=== PATIENT | female | born 1945 | race Caucasian/White ===

== ENCOUNTER 2016-07-01 14:18 | Emergency (ER) | payer MEDICARE ==
[~2016-07-01 14:18] MED LIST: ACET325T51 PO; AMOX875T2 PO; CALC600T12 PO; DOCU250C2 PO; LATA2.5D6 OP; LEVO25TA5 PO; MULT-1018 PO; OMEP20TA24 PO; ONDA8TAB7 PO; SERT50TA9 PO
[2016-07-01 14:38] VITALS: BP 143/83; PULSE 59; RESP 18; O2SAT 97
[2016-07-01 15:15] LABS: BASOPHILS % (AUTO) 0.7 % (0-3); EOSINOPHILS % (AUTO) 1.5 % (0-5); MONOCYTES % (AUTO) 12.9 % (4-12); Mean Corpuscular Hemoglobin 31.2 pg (27.0-35.0); Mean Corpuscular Volume 94.7 fL (81-100); NEUTROPHILS % (AUTO) 56.8 % (40-74); Platelet Count 126 bil/L (150-400)
--- NOTE | 2016-07-01 15:39 | ED.REPORT ---
HPI-General Illness Date of Service Jul 01, 2016 ED Provider: Luke Gloria MD Pt is a 71 y/o female w/ a hx of recurrent ovarian/peritoneal cancer presenting to the ED w/ her c/o generalized weakness and fatigue. Pt reports she has had a bad upper respiratory infection for 47 days with associated nasal congestion, clear nasal discharge, teary eyes, facial pressure. Pt denies fever , cough, nausea, vomiting, abdominal pain, bloody or melena stools, sinus pain. She was placed on a 10 day course of Amoxicillin for a supposed sinus infection by her PCP with no relief. She receives chemotherapy every 3 weeks, her last session was about 1 week ago. Her symptoms seem to be worse during the day. She has been using allergy medication with mild relief only a short period afterwards. Nursing Notes Stated Complaint: EXTREME FATIGUE/FEELING WEAK Chief Complaint: General Complaint Nursing Notes Reviewed: Yes Allergies: Coded Allergies: No Known Allergies (Verified Allergy, Unknown, 07/01/16) Scheduled Amoxicillin (Amoxicillin) 875 Mg Tablet 875 MG PO BID Calcium Carbonate (Calcium) 600 Mg Tablet 600 MG PO BID Latanoprost (Latanoprost) 2.5 Ml Drops 1 GTT OP HS EACH EYE Levothyroxine (Levothyroxine) 25 Mcg Tablet 25 MCG PO DAILY Multivitamin (Multi Vitamin Daily) 1 Each Tablet 1 EACH PO DAILY Omeprazole Magnesium (Prilosec Otc) 20 Mg Tablet.dr 20 MG PO DAILY Sertraline HCl (Sertraline) 50 Mg Tablet 100 MG PO DAILY Scheduled PRN Acetaminophen (Acetaminophen) 325 Mg Tablet 650 MG PO Q4H PRN PRN For Pain Docusate Sodium (Docusate Sodium) 250 Mg Capsule 250 MG PO DAILY PRN PRN For Constipation Ondansetron ODT (Zofran ODT) 8 Mg Tablet 8 MG PO q8hrs prn PRN PRN For Nausea General Time Seen by MD: 15:38 Chief Complaint Multip medical complaints Hx Obtained From: Patient Arrived By: Walk-in Onset Occurred: More than a week ago... 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 Melgar for debulking. She received additional chemotherapy and it was found to have normalized until recent changes in tumor status (Jan 2016) NINO on CPAP Reports: Thyroid disease Past Surgical History tumor debulking at [facility] in 2014. Left Power Port placement. Peritoneal biopsy. Smoking History Never Smoker Social History Other Social History: Good social support, , Local resident Ambulatory Status Independent Review of Systems Full Review of Systems Constitutional: Reports: Fatigue, Weakness - generalized, Denies: Chills, Fever Ears / Nose / Throat: Reports: Nasal congestion Respiratory: Denies: Non-productive cough, Shortness of breath Cardiovascular: Denies: Chest pain GI: Denies: Abdominal pain, Bloody/tarry stool, Melena, Nausea, Vomiting Allergy / Immune: Reports: Rhinorrhea Complete sys rev & neg: except as marked. Physical Exam Vital Signs Vital Signs Date Time Temp Pulse Resp B/P Pulse Ox O2 Delivery O2 Flow Rate FiO2 07/01/16 14:38 37.2 59 18 143/83 97 Room Air Initial VS: Reviewed, Vital signs normal Neck: Supple, Full range of motion Respiratory: Breath sounds normal, Clear to auscultation, No respiratory distress Cardiovascular: Regular rate & rhythm, Heart sounds normal, Intact distal pulses Abdomen / GI: Soft, Non-tender, No guarding, No rebound, No distention Skin: Warm, Dry, No cyanosis Neurologic: Alert, Oriented, Nonfocal Psychiatric: Mood/affect normal, Behavior normal, Normal thought content General/Constitutional: Awake, Alert, No acute distress, Well appearing, Cooperative, Not toxic appearing Head / Eyes: Atraumatic, Normocephalic, PERRL No maxillary or frontal sinus tenderness ENT: Atraumatic, Airway patent, Mucous membranes moist, Pharynx NL, No peritonsillar abscess, No pooling of secretions, No trismus, Tympanic membs NL, Ext aud canal NL Clear nasal congestion bilaterally [place] slightly erythematous No purulent discharge Interpretation & Diagnostics Lab Results Interpretation Result Diagram: 07/01/16 1507 07/01/16 1507 Test 07/01/16 15:07 White Blood Count 2.7th/mm3 (3.8-10.1) Red Blood Count 4.33mil/mm3 (3.90-5.20) Hemoglobin 13.5g/dL (12.0-15.6) Hematocrit 41.0% (35.0-46.0) Mean Corpuscular Volume 94.7fL (81-100) Mean Corpuscular Hemoglobin 31.2pg (27.0-35.0) Mean Corpuscular Hemoglobin Concent 32.9% (32.0-37.0) Red Cell Distribution Width 14.4% (12.3-15.4) Platelet Count 126bil/L (150-400) Neutrophils (%) (Auto) 56.8% (40-74) Lymphocytes (%) (Auto) 27.7% (14-46) Monocytes (%) (Auto) 12.9% (4-12) Eosinophils (%) (Auto) 1.5% (0-5) Basophils (%) (Auto) 0.7% (0-3) Sodium Level 136mEq/L (134-144) Potassium Level 4.5mEq/L (3.5-5.2) Chloride Level 97mEq/L (97-108) Carbon Dioxide Level 27mmol/L (18-29) Blood Urea Nitrogen 13mg/dL (8-27) Creatinine 0.57mg/dL (0.57-1.00) Estimat Glomerular Filtration Rate 149mL/min (>59) Glucose Level 91mg/dL (60-99) Calcium Level 9.3mg/dL (8.5-10.1) Total Bilirubin 0.2mg/dL (0.0-1.2) Aspartate Amino Transf (AST/SGOT) 14U/L (0-50) Alanine Aminotransferase (ALT/SGPT) 15U/L (0-32) Alkaline Phosphatase 63U/L (25-165) Troponin T < 0.010ug/L (0.0-0.011) Pro-B-Type Natriuretic Peptide 52.53pg/mL (0-301) Total Protein 7.2g/dL (6.4-8.4) Albumin 4.3g/dL (3.4-5.0) Hold Barrios Top Tube Received (Received) ECG Interpretation Time: 15:41 Interpreted by: ED physician Normal ECG Interpretation: Normal ECG w/ rate of... (53), Normal rate, Normal sinus rhythm, No acute ischemic changes, Normal QRS, Normal axis, Normal intervals, No change from prior ECGs, Adequate tracing Re-Eval/Medical Decision Med Decision/Clinical Course Pt is a 71 y/o female w/ a hx of recurrent ovarian/peritoneal cancer presenting to the ED w/ her c/o generalized weakness and fatigue. Pt reports she has had a bad upper respiratory infection for 47 days with associated nasal congestion, clear nasal discharge, teary eyes, facial pressure. He has not gotten better or worse despite using many pot and antihistamines. Emergency department the patient is afebrile and in no apparent distress. She is nontoxic in appearance. Termination reveals bilateral clear rhinorrhea and inflammation of the turbinates. She has no purulent nasal discharge or sinus tenderness. EKG is obtained at triage was reviewed by myself as documented above. CXR: Obtained, reviewed and interpreted by myself shows no evidence of acute infiltrates, effusions or pneumothorax. Cardiac and mediastinal silhouette normal. No bony or soft tissue abnormalities. Labs notable as below: CBC: Leukopenia of 2.7, she is not neutropenic CMP: Unremarkable BNP and troponin: negative Overall presentation most consistent with chronic sinusitis. Suspicion for bacterial etiologies higher given that she is on chemotherapy and therefore some degree of immunocompromised. Being said, she is without fever, purulent nasal drainage or lateralizing symptoms. The chronicity of her symptoms and absence of fever, appearance of nasal drainage argue against a bacterial etiology. She reports that she has taken antihistamine spell was not able to recall which type. She do not feel that these helped significantly. She is not sure what chemotherapy agent she is on though does not attribute this, chronologically to the onset of her symptoms. The patient received quite an extensive workup given the initial vague complaints in triage. This workup is reassuring. She has not tried Sudafed and I think that she may benefit from this. She will give this a trial and follow further primary care physician later this week. She will return right away for any fevers or purulent/ worsening symptoms. She may require sinus imaging and this is ordered but discussed with her primary care physician. She will follow this discussion up later in the week. At this time, I feel that she is appropriate for discharge home. Follow-up and return precautions were reviewed in detail she was discharged in stable condition. Time of Eval: 16:14 Re-Evaluation/Progress Note: Pt rechecked. Informed pt of plan for treatment. Pt understands and agrees with plan for treatment. F/U instructions and RTER warnings given. All questions addressed. Counseled Regarding: Diagnosis, Lab results, Need for follow-up, When/why to return to ED Discharge & Departure Primary Impression: Viral sinusitis Additional Impressions: Fatigue Fatigue type: unspecified Qualified Code: R53.83 - Other fatigue Leukopenia Leukopenia type: unspecified Qualified Code: D72.819 - Decreased white blood cell count, unspecified Patient on antineoplastic chemotherapy regimen Disposition: Home Discharge Condition All VS Reviewed: Yes Condition: Stable Patient Instructions: Allergies (ED), Sinusitis (ED) Additional Instructions: Thank you for seeking care at the emergency room. It is difficult for us to make definitive diagnoses in the ED but we believe that you are experiencing a possible seasonal allergic reaction or viral sinusitis. Our primary goal today in the ED was to evaluate you for any life-threatening conditions. Your evaluation was reassuring. Your labs today were normal. Your chest x-ray was negative. I recommend you try Sudafed for a few days. You should follow-up with your primary doctor in the next week. Please discuss this visit with your PCP and oncologist. You should return to the ED immediately if you develop fevers, vomiting, cough, shortness of breath, chest pain, increased lightheadedness, increased weakness or any other concerning signs or symptoms. Thank you for letting us partake in your care today. Referrals: Susie Levy MD (PCP) Jyothi Attestation Portions of this note were transcribed by Pankaj Zimmer. I, Dr. Gloria personally performed the history, physical exam and medical decision-making; I reviewed and confirmed the accuracy of the information in the transcribed note. Signed by Jyothi Curmp, 07/01/16 - 1630 copies to: Susie Levy MD, Beck O MD Jul 01, 2016 15:39 PANKAJ ZIMMER Jul 01, 2016 15:42
--- NOTE | 2016-07-01 16:06 | DRSVH ---
PROCEDURE: X-RAY CHEST ONE VIEW ([id number]) INDICATIONS: SHORT OF BREATH TECHNIQUE: One view of the chest was acquired. COMPARISON: [facility], CR, CHEST 1VW (PORTABLE), 09/23/2014, 11:23. FINDINGS: Surgical changes and devices: Left Port-A-Cath is unchanged. Lungs and pleura: No pleural effusions or pneumothorax. Lungs are clear. Mediastinum: Mediastinal contours appear normal. Heart size is normal. Bones and chest wall: No suspicious bony lesions. Overlying soft tissues appear unremarkable. IMPRESSION: No acute cardiopulmonary findings. Dictated by: Danya Craft M.D. on 07/01/2016 at 16:02 Approved by: Danya Craft M.D. on 07/01/2016 at 16:04
[2016-07-01 16:08] LABS: TROPONIN T < 0.010 ug/L (0.0-0.011)
[2016-07-31] MEDS ORDERED: FEXO1TAB7 PO (10:12)
[2016-07-31] MEDS ORDERED: NPR500T PO (10:12)
[2016-09-11] MEDS ORDERED: FEXO180T85 PO (12:58)
[2016-09-11] MEDS ORDERED: FLUT15.88 NS (12:58)
[2016-09-11] MEDS ORDERED: CALC-867 PO (12:58)
[2016-11-01] MEDS ORDERED: TUMERIC OTC PO (10:40)
== END 2016-07-01 16:28 | disposition home or self-care (01) ==
LOC: SED 14:18
DX: J32.9 Chronic sinusitis, unspecified (principal); B97.89 Other viral agents as the cause of diseases classified elsewhere; D72.829 Elevated white blood cell count, unspecified; C48.2 Malignant neoplasm of peritoneum, unspecified; C79.60 Secondary malignant neoplasm of unspecified ovary; R53.83 Other fatigue; E07.9 Disorder of thyroid, unspecified; Z92.21 Personal history of antineoplastic chemotherapy